=== PATIENT | male | born 2000 | race Caucasian/White ===

== ENCOUNTER 2025-05-12 13:06 | Day surgery (SDC) | payer BC, SELFPAY ==
[2025-05-12] MEDS ORDERED: PROPOFOL 40 ML ONE (15:43)
[2025-05-12] MEDS ORDERED: fentaNYL PF 100 MCG/2 ML SYRINGE ONE (15:43)
[2025-05-12] MEDS ORDERED: Rocuronium Bromide 10 MG/ML (10ML VIAL) ONE ×2 (15:44→16:41)
[2025-05-12] MEDS ORDERED: Lidocaine 1% PF 5 ML VIAL ONE (15:44)
[2025-05-12] MEDS ORDERED: Famotidine/PF 20 mg/2ml Vial ONE (15:45)
[2025-05-12] MEDS ORDERED: Bupivacaine 0.25% HCL 30 ML VIAL ONE ×2 (16:22→17:04)
[2025-05-12] MEDS ORDERED: SUCCINYLCHOLINE/SOD CL,ISO/PF 200 MG/10 ML SYRINGE FS ONE (16:32)
[2025-05-12] MEDS ORDERED: PROPOFOL 200 MG/20 ML VIAL ONE (16:41)
[2025-05-12] MEDS ORDERED: Ondansetron PF 4 MG/2 ML Vial ONE (16:49)
[2025-05-12] MEDS ORDERED: CEFAZOLIN 1 GM VIAL ONE (16:55)
[2025-05-12] MEDS ORDERED: SUGAMMADEX SODIUM 200 MG/2 ML VIAL ONE (17:49)
== END 2025-05-12 19:12 | disposition home or self-care (01) ==
LOC: SDC 13:06
PROVIDERS: ATTEND Surgery
PROC: 0FT44ZZ Resection of Gallbladder, Percutaneous Endoscopic Approach (ICD-10-PCS; principal; 2025-05-12)
DX: K80.12 Calculus of gallbladder with acute and chronic cholecystitis without obstruction (principal)
CPT/HCPCS: 88304; C1889; J0169; J0665; J0690; J1100; J1308; J2405; J2704; J3010; S2900